=== PATIENT | male | born 1975 | race Caucasian/White ===

== ENCOUNTER 2023-06-02 13:54 | Emergency (ER) | payer BC, SELFPAY ==
[2023-06-02] VITALS (9 sets, daily range): BP systolic 128–142; BP diastolic 69–91; PULSE 96–122; RESP 9–26; TEMP 36.9; O2SAT 93–99; BMI 28.7
--- NOTE | 2023-06-02 14:08 | DI.RAD.S_ITS ---
PROCEDURE: XR FEMUR RT MIN 2V INDICATIONS: injury TECHNIQUE: 2 views of the femur were acquired. COMPARISON: None. FINDINGS: Bones: No fractures or dislocations. No suspicious bony lesions. Soft tissues: No suspicious soft tissue calcifications or masses. IMPRESSION: No acute fracture. No osseous lesion. If symptoms and/or clinical suspicion for pathology persist, further assessment with repeat, or advanced imaging (e.g., CT, MRI, or bone scan) may be helpful for further assessment. Dictated by: Tejal Bruce M.D. on 06/02/2023 at 15:18 Approved by: Tejal Bruce M.D. on 06/02/2023 at 15:18
[2023-06-02] MEDS: SODIUM CHLORIDE 0.9% 1,000 ML 1000 ML IV ×2 (14:29→15:14)
--- NOTE | 2023-06-02 14:30 | ED.LOWEXIN ---
HPI - Extremity Injury (Lower) General Chief Complaint: Extremity Injury, Lower Stated Complaint: rt leg injury Time Seen by Provider: 06/02/23 14:26 Source: patient Mode of arrival: Ambulatory History of Present Illness HPI Narrative: 48yo M presents with RLE injury. Patient states he is overall healthy. Yesterday at work, a heavy metal bar accidentally rolled over his right femur. He denies any other injuries. No blood thinners. No prior surgeries to this area. No wounds. No focal numbness or weakness. He is able to walk and fully move all joints, though he has a limp while walking. No head or neck or back or chest or abdominal or flank pain. No other extremity pain. He is bruising and pain to his medial right thigh. No blood in urine. Someone is driving him. He declines me filling out workman's comp forms for today's visit, understanding the ramifications of this. No other new concerns. Related Data Previous Rx's Medication Instructions Recorded oxycodone 5 mg capsule 5 mg PO Q8H PRN pain #6 caps 06/02/23 Allergies Allergy/AdvReac Type Severity Reaction Status Date / Time No Known Drug Allergies Allergy Verified 06/02/23 14:04 Review of Systems Review of Systems Narrative: Constitutional: no fever, no chills Eyes: no visual disturbance, no discharge Ears, Nose, Mouth, Throat: no rhinorrhea, no sore throat Cardiovascular: no chest pain, no palpitations Respiratory: no cough, no shortness of breath Gastrointestinal: no abdominal pain, no vomiting, no diarrhea Genitourinary: no dysuria, no hematuria Musculoskeletal: no back pain, no neck stiffness Skin: no rash, no wound Neurological: no focal weakness, no focal numbness Patient History Social History Smoking Status: Current some day smoker Smoking Status: Current some day smoker Substance Use Type: does not use Exam Narrative Exam Narrative: Const: no acute distress, non toxic appearing; calm, conversant, pleasant Head: no lacerations or contusions. No maxillary tenderness or midface instability. No nasal septal hematoma. No nelson sign or raccoon eyes. No evidence of intraoral trauma. Mucous membranes moist. Eyes: PERRLA, EOMI Neck: supple, non-tender Resp: no respiratory distress, clear to auscultation bilaterally Card: regular rate and rhythm, no murmurs; no chest wall or clavicular tenderness Abd: non tender diffusely, no rigidity or rebound or guarding Back: no T or L spine tenderness, no CVA tenderness bilaterally Extrem: no pelvic tenderness or instability. There is large contusion that is mildly tender to medial right thigh with no bony tenderness, no fluctuance, no induration, no erythema, no wounds. He has soft compartments and is fully neurovascularly intact distally. He can extend the hip and knee without substantial difficulty. No other visual or palpable evidence of trauma to extremities; extremities with 2+ distal pulses, normal range of motion, intact strength and sensation, no deformities, soft compartments. No snuffbox tenderness bilaterally. 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, grossly intact sensation and strength all extremities Skin: no other lacerations; no rash, warm and dry Initial Vital Signs Initial Vital Signs: Vital Signs Temperature 98.5 F 06/02/23 13:59 Pulse Rate 122 H 06/02/23 13:59 Respiratory Rate 16 06/02/23 13:59 Blood Pressure 128/91 H 06/02/23 13:59 Pulse Oximetry 96 06/02/23 13:59 Oxygen Delivery Method Room Air 06/02/23 13:59 Course Course Course Narrative: This presentation is most suggestive of muscle contusion, with exam reassuring against quadricep or other complete muscle tear, with fracture possible but less likely, with rhabdomyolysis certainly a potential concern given degree of contusion. Extensor mechanism intact. No evidence of infection. No evidence of dislocation. No neurovascular deficits. No evidence of compartment syndrome. Patient has no evidence of injury beyond focally to his right inner thigh, with excellent movement of hip and knee without pain. No wounds. He agrees to trial oxycodone. I am obtaining x-ray of femur, CBC, CMP, CK, urine, giving fluids and will closely reassess. He knows not to drive after getting oxycodone. CBC with no leukocytosis, anemia, thrombocytopenia. Chemistry with borderline hyponatremia, with reassuring creatinine, no BUN elevation, mild AST elevation in setting of suspected muscle breakdown but no other LFT or bilirubin elevation, no abdominal pain or injuries. CK elevated to 1544. We will trend. At this level, this degree of rhabdomyolysis is unlikely to cause significant renal injury. Urine dip reassuring. Radiology review of imaging below, which I agree with on my independent review: FINDINGS: Bones: No fractures or dislocations. No suspicious bony lesions. Soft tissues: No suspicious soft tissue calcifications or masses. IMPRESSION: No acute fracture. No osseous lesion. If symptoms and/or clinical suspicion for pathology persist, further assessment with repeat, or advanced imaging (e.g., CT, MRI, or bone scan) may be helpful for further assessment. Dictated by: Tejal Bruce M.D. on 06/02/2023 at 15:18 Repeat CK improving. Patient is accordingly highly unlikely to have clinically significant rhabdomyolysis leading to renal injury. Fluids given and he appears comfortable. He was given short course of oxycodone prescription, and he understands very careful use of this. Contusion without clinically significant blood loss or rhabdomyolysis in a patient who was neurovascularly intact with intact muscle function is most likely. I am nonetheless referring him to orthopedics for follow up, and he understands importance of primary care follow up as well. No other new concerns. Repeat exam and vital signs reassuring. Note patient NOT tachypneic on discharge, last RR is erroneous. Questions answered. Plan reviewed. Patient discharged in stable condition. Orders Ordered: ED Orders 06/02/23 14:08 XR femur RT min 2V Stat 06/02/23 14:26 Complete Blood Count AUTO DIFF Stat Comprehensive Metabolic Panel Stat Creatine Kinase Stat 06/02/23 16:05 CK [Creatine Kinase] Stat Discontinued Medications Sodium Chloride (Normal Saline 0.9%) 1,000 mls @ 1,000 mls/hr IV BOLUS ONE Stop: 06/02/23 15:13 Last Infusion: 06/02/23 15:32 Dose: Infused Documented By: Admin: 06/02/23 14:29 Dose: 1,000 mls/hr Documented By: AIDEN Sodium Chloride (Normal Saline 0.9%) 1,000 mls @ 1,000 mls/hr IV BOLUS ONE Stop: 06/02/23 15:56 Last Infusion: 06/02/23 15:14 Dose: Infused Documented By: Admin: 06/02/23 15:14 Dose: 1,000 mls/hr Documented By: AIDEN Oxycodone HCl (Oxycodone Ir 5 Mg Tablet) 5 mg PO NOW ONE Stop: 06/02/23 15:15 Last Admin: 06/02/23 15:21 Dose: 5 mg Documented By: AIDEN Vital Signs Vital signs: Vital Signs - 8 hr 06/02/23 13:59 06/02/23 14:46 06/02/23 14:47 Temperature 98.5 F Pulse Rate 122 H 99 H 96 H Respiratory Rate 16 16 10 L Blood Pressure 128/91 H 139/69 Pulse Oximetry 96 99 93 Oxygen Delivery Method Room Air Room Air 06/02/23 15:07 06/02/23 15:08 06/02/23 15:08 Temperature Pulse Rate 97 H 96 H Respiratory Rate 16 9 L Blood Pressure 142/89 H Pulse Oximetry 97 96 Oxygen Delivery Method 06/02/23 15:30 06/02/23 16:00 06/02/23 16:30 Temperature Pulse Rate 100 H 98 H 96 H Respiratory Rate 19 16 19 Blood Pressure Pulse Oximetry 95 95 96 Oxygen Delivery Method Room Air 06/02/23 17:00 Temperature Pulse Rate 101 H Respiratory Rate 26 H Blood Pressure 140/77 Pulse Oximetry 95 Oxygen Delivery Method Room Air MDM - Extremity Injury (Lower) Lab Data 06/02/23 14:26 06/02/23 14:26 Labs: Lab Results 06/02/23 06/02/23 Range/Units 14:26 16:05 WBC 7.9 (4.5-11.0) X10^3/uL RBC 4.52 (4.5-5.9) X10^6/uL Hgb 14.3 (13.5-17.5) g/dL Hct 41.7 (41-53) % MCV 92.3 (80-100) fL MCH 31.6 (26-34) PG MCHC 34.2 (30-36) % RDW 16.5 H (11.6-14.8) % Plt Count 218 (150-400) X10^3/uL Neut % (Auto) 75.0 (50-75) % Lymph % (Auto) 11.6 L (25-40) % Sebastian % (Auto) 12.0 (3-14) % Eos % (Auto) 0.7 L (2-4) % Baso % (Auto) 0.7 (0-2) % Neut # (Auto) 5900 (5025-5902) /uL Lymph # (Auto) 900 L (8806-0601) /uL Sebastian # (Auto) 900 (0-900) /uL Eos # (Auto) 100 (0-450) /uL Baso # (Auto) 100 (0-100) /uL Sodium 136 L (137-145) mmol/L Potassium 4.4 (3.4-5.1) mmol/L Chloride 99 (98-107) mmol/L Carbon Dioxide 25 (22-32) mmol/L BUN 5 L (9-20) mg/dL Creatinine 0.85 (0.66-1.25) mg/dL Estimated GFR > 60 (>60) mL/min BUN/Creatinine Ratio 5.9 L (6-22) Glucose 128 H (70-100) mg/dL Calcium 8.5 (8.4-10.2) mg/dL Total Bilirubin 0.6 (0.2-1.3) mg/dL AST 83 H (17-59) IU/L ALT 37 (<50) IU/L Alkaline Phosphatase 89 (38-126) U/L Total Creatine Kinase 1554 H 1338 H (55-170) U/L Total Protein 8.0 (6.3-8.2) g/dL Albumin 4.9 (3.5-5.0) g/dL Globulin 3.1 (1.7-4.1) g/dL Albumin/Globulin Ratio 1.6 (1.0-2.8) Urine Dip Bedside Urine Glucose Negative Bedside Urine Bilirubin - Negative Bedside Urine Ketone - Negative Urine Specific Marion 1.000 Bedside Urine Occult Blood - Negative Bedside Urine pH 7.0 Bedside Urine Protein - Negative Bedside Urine Urobilinogen - Negative Bedside Urine Nitrite - Negative Bedside Urine Leukocytes - Negative Esterase Discharge Plan Departure Patient Disposition: Home Clinical Impression: Rhabdomyolysis, Contusion Instructions: Contusion, DI for Rhabdomyolysis Activity Restrictions/Additional Instructions: It was a pleasure taking care of you today. It is important to fully read and understand the below. Please ask us if you have any questions. We think the most likely cause of your pain is a large muscle contusion. You had evidence of some muscle breakdown here, which we trended and which is decreasing. We gave you fluids and pain control. It is very important to follow up with primary care within 3-5 days to be reassessed, and I am also referring you to orthopedics. You have been given or prescribed any narcotics or other sedating medications. Please take only what you must, DO NOT combine with alcohol or other sedating medications, DO NOT drive while taking, do not allow anyone else to take these medications, and please carefully dispose of what you do not use. No tests or assessments are perfect, and your condition could change management expert time. If your symptoms change or worsen, it is very important you immediately seek medical care. If you have any new or worsening pain, swelling, redness, rash, fever, numbness, weakness, bleeding, difficulty using your body, or anything else that concerns you, please immediately seek medical care. If you have been prescribed any medications: please read the drug package inserts on how to properly use the medication and any potential side effects. If you had labs (blood tests) or imaging (CT scan or x-rays) done during your visit: please follow up on the results of these with your primary care doctor, as discussed. In addition, please know the results we received today may be preliminary. Our usual practice is to follow up on tests within a few days of a patient's discharge from the Emergency Department and notify you of any changes. These may lead to changes to your treatment plan. However, the best way to obtain and interpret these test results is through your Primary Care Provider. If you need to update your contact information, please stop by the front counter clerk and alert the Registration personnel before you leave the Emergency Department. Thank you for the opportunity to participate in your healthcare. We are always here and happy to see you in the future. Prescriptions: New oxycodone 5 mg capsule 5 mg PO Q8H PRN (Reason: pain) Qty: 6 0RF Referrals: Thomas Gamboa MD [Physician] - (Large thigh contusion seen in ER) Stand Alone Forms: Patient Portal/API
[2023-06-02 14:33] LABS: Add Manual Diff / Slide Review NO; Basophils Absolute Auto 100 /uL (0-100); Basophils Percent Auto 0.7 % (0-2); Eosinophils Absolute Auto 100 /uL (0-450); Eosinophils Percent Auto 0.7 % (2-4); Hematocrit 41.7 % (41-53); Hemoglobin 14.3 g/dL (13.5-17.5); Lymphocytes Absolute Auto 900 /uL (1100-4500); Lymphocytes Percent Auto 11.6 % (25-40); Mean Corpuscular HGB Conc 34.2 % (30-36); Mean Corpuscular Hemoglobin 31.6 PG (26-34); Mean Corpuscular Volume 92.3 fL (80-100); Monocytes Absolute Auto 900 /uL (0-900); Neutrophils Absolute Auto 5900 /uL (1500-7000); Platelet Count 218 X10^3/uL (150-400); Red Blood Cell Count 4.52 X10^6/uL (4.5-5.9); Red Cell Distribution Width 16.5 % (11.6-14.8); White Blood Cell Count 7.9 X10^3/uL (4.5-11.0)
[2023-06-02 14:43] LABS: Alanine Aminotransferase 37 IU/L (<50); Albumin 4.9 g/dL (3.5-5.0); Albumin Globulin Ratio 1.6 (1.0-2.8); Alkaline Phosphatase 89 U/L (38-126); Aspartate Aminotransferase 83 IU/L (17-59); BUN Creatinine Ratio 5.9 (6-22); Bilirubin Total 0.6 mg/dL (0.2-1.3); Blood Urea Nitrogen 5 mg/dL (9-20); Calcium 8.5 mg/dL (8.4-10.2); Carbon Dioxide 25 mmol/L (22-32); Chloride 99 mmol/L (98-107); Estimated Glomerular Filt Rate > 60 mL/min (>60); Globulin 3.1 g/dL (1.7-4.1); Glucose 128 mg/dL (70-100); HEMOLYSIS < 15 (0-50); Potassium 4.4 mmol/L (3.4-5.1); Sodium 136 mmol/L (137-145)
[2023-06-02 14:48] LABS: Creatine Kinase 1554 U/L (55-170)
[2023-06-02] MEDS: OXYCODONE IR 5 MG TABLET PO (15:21)
[2023-06-02 16:47] LABS: Creatine Kinase 1338 U/L (55-170)
== END 2023-06-02 17:27 | disposition home or self-care (01) ==
PROVIDERS: Emergency Provider Emergency Medicine
DX: S89.91XA Unspecified injury of right lower leg, initial encounter (principal); M62.82 Rhabdomyolysis; W22.8XXA Striking against or struck by other objects, initial encounter
CPT/HCPCS: 36415; 73552; 80053; 81003; 82550; 85025; 96360; 99284